=== PATIENT | female | born 1975 | race Caucasian/White ===

== ENCOUNTER 2017-01-12 19:11 | Emergency (ER) | payer OTHER ==
[~2017-01-12] VITALS: Ht 167.6 cm; Wt 84.9 kg
[2017-01-12 20:00] LABS: HEMATOCRIT 38.7 % (36.0-46.0); MCH 28.4 PG (29.0-34.0); MCHC 32.6 G/DL (30.0-36.0); MCV 87.2 FL (83-99); MEAN PLAT.VOLUME 8.3 uM^3 (9.5-12.4); PLATELET COUNT 317 K/uL (156-360); RBC DIS.WIDTH-CV 15.1 % (11.8-14.6); RBC DIS.WIDTH-SD 48.5 % (39-53); RED BLOOD COUNT 4.44 M/uL (3.80-5.20); WHITE BLOOD COUNT 14.4 K/uL (4.1-10.2)
[2017-01-12 20:11] LABS: CHLORIDE 104 mEq/L (99-109); POTASSIUM 4.3 mEq/L (3.7-5.4); SODIUM 138 mEq/L (136-147)
[2017-01-12 20:13] LABS: GLUCOSE 112 mg/dL (70-99)
[2017-01-12 20:14] LABS: ANION GAP 11 MEQ/L (2-14)
[2017-01-12 20:15] LABS: TOTAL BILIRUBIN 0.7 mg/dL (0.0-1.0)
[2017-01-12 20:17] LABS: ALKALINE PHOSPHATASE 72 IU/L (3-129); GFR ESTIMATE (CALCULATED) > 59 mL/min/
[2017-01-12 20:18] LABS: UREA NITROGEN (BUN) 7 mg/dL (9-23)
[2017-01-12 20:27] LABS: QUANTITATIVE HCG < 4.0 MIU/ML
[2017-01-12 20:33] LABS: ADD MIUA? YES; BILIRUBIN NEGATIVE; BLOOD SMALL; COLOR YELLOW ((YELLOW)); GLUCOSE (STRIP) NEGATIVE; KETONES 5; LEUKOCYTES LARGE; NITRITE POSITIVE; PROTEIN (STRIP) NEGATIVE; SPECIFIC GRAVITY 1.008 (1.000-1.030); UROBILINOGEN 0.2 MG/DL (0.2-1.0)
[2017-01-12 20:44] LABS: BACTERIA 2+ /HPF; CALCIUM OXALATE CRYSTALS 2+ /HPF; EPITHELIAL CELLS 2+ /HPF; MUCUS TRACE /LPF; RED BLOOD CELLS NONE SEEN /HPF (0-5); UCUL ADDED? YES; WHITE BLOOD CELLS 20-30 /HPF (0-5)
[2017-01-12] MEDS ORDERED: KEFLEX500 MG PO (22:25)
[2017-01-12] MEDS ORDERED: VYVANSE40 MG PO (22:32)
[2017-01-12] MEDS ORDERED: ESCITALOPRAM OX20 MG PO (22:33)
[2017-01-12 23:01] VITALS: BP 126/64
== END 2017-01-12 23:04 | disposition home or self-care (01) ==
LOC: EME 19:11
DX: N39.0 Urinary tract infection, site not specified (principal); R10.9 Unspecified abdominal pain; K21.9 Gastro-esophageal reflux disease without esophagitis; F17.200 Nicotine dependence, unspecified, uncomplicated
CPT/HCPCS: 74176; 80053; 81003; 84702; 85027; 87077; 87086; 87186; 99281; 99284; J0696

== ENCOUNTER 2017-01-14 10:40 | Emergency (ER) | payer OTHER ==
[~2017-01-14] VITALS: Ht 167.6 cm; Wt 84.1 kg
[~2017-01-14 10:40] MED LIST: ESCITALOPRAM OX20 MG PO; KEFLEX500 MG PO; VYVANSE40 MG PO
[2017-01-14 12:21] LABS: HEMATOCRIT 39.5 % (36.0-46.0); MCHC 32.2 G/DL (30.0-36.0); MCV 87.2 FL (83-99); MEAN PLAT.VOLUME 7.9 uM^3 (9.5-12.4); PLATELET COUNT 258 K/uL (156-360); RBC DIS.WIDTH-SD 48.8 % (39-53); RED BLOOD COUNT 4.53 M/uL (3.80-5.20)
[2017-01-14 12:27] LABS: CHLORIDE 108 mEq/L (99-109)
[2017-01-14 12:28] LABS: SODIUM 140 mEq/L (136-147); WHITE BLOOD COUNT 4.5 K/uL (4.1-10.2)
[2017-01-14 12:29] LABS: GLUCOSE 92 mg/dL (70-99)
[2017-01-14 12:31] LABS: ANION GAP 12 MEQ/L (2-14)
[2017-01-14 12:33] LABS: GFR ESTIMATE (CALCULATED) > 59 mL/min/
[2017-01-14 12:34] LABS: UREA NITROGEN (BUN) 9 mg/dL (9-23)
[2017-01-14 12:42] LABS: QUANTITATIVE HCG < 4.0 MIU/ML
[2017-01-14 12:45] LABS: ADD MIUA? YES; BILIRUBIN NEGATIVE; BLOOD NEGATIVE; COLOR YELLOW ((YELLOW)); GLUCOSE (STRIP) NEGATIVE; KETONES NEGATIVE; LEUKOCYTES MODERATE; NITRITE NEGATIVE; PROTEIN (STRIP) NEGATIVE; SPECIFIC GRAVITY 1.015 (1.000-1.030); UROBILINOGEN 0.2 MG/DL (0.2-1.0)
[2017-01-14 12:57] LABS: BACTERIA RARE /HPF; EPITHELIAL CELLS 4+ /HPF; MUCUS 1+ /LPF; UCUL ADDED? NO
[2017-01-14] MEDS ORDERED: PYRIDIUM100 MG PO (13:15)
[2017-01-14 13:54] VITALS: BP 117/58
== END 2017-01-14 13:53 | disposition home or self-care (01) ==
LOC: EME 10:40
DX: R10.30 Lower abdominal pain, unspecified (principal); R39.89 Other symptoms and signs involving the genitourinary system; F41.9 Anxiety disorder, unspecified; K21.9 Gastro-esophageal reflux disease without esophagitis; F17.200 Nicotine dependence, unspecified, uncomplicated
CPT/HCPCS: 80048; 81003; 84702; 85027; 99281; 99284